=== PATIENT | male | born 1950 | race Caucasian/White ===

== ENCOUNTER 2016-11-19 02:47 | Inpatient (IN) | payer MEDICARE, OTHER ==
[~2016-11-19] VITALS: Ht 182.9 cm; Wt 84.8 kg
[2016-11-19] VITALS (12 sets, daily range): BP systolic 120–147; RESP 12–18; TEMP 97.3–98.4; Ht 182.9 cm; Wt 84.8 kg
[2016-11-19] MEDS ORDERED: OPTIRAY 350 100 ML VIAL HMH IV ONE (02:48)
[2016-11-19] MEDS ORDERED: ONDANSETRON 4 MG VIAL ONE ×3 (03:15→07:12)
[2016-11-19] MEDS ORDERED: SODIUM CHLORIDE 0.9% 1,000 ML ONE (03:20)
[2016-11-19] MEDS ORDERED: MORPHINE 4 MG/ML SYR ONE ×3 (03:20→07:12)
[2016-11-19] MEDS ORDERED: CEFAZOLIN 1,000 MG in DEXTROSE 5% 50 ML IV ONE (09:55)
[2016-11-19] MEDS ORDERED: LACT RINGERS 1,000 ML IV SCH (10:20)
[2016-11-19] MEDS ORDERED: MIDAZOLAM 2 MG/2 ML INJ IV ONE (10:20)
[2016-11-19] MEDS ORDERED: LIDOCAINE 1% BUFFERED 1 ML SYR INTRADERM PRN (10:20)
[2016-11-19] MEDS ORDERED: GLYCOPYRROLATE 0.2 MG/ML VIAL IV ONE (10:20)
[2016-11-19] MEDS ORDERED: MORPHINE 4 MG/ML SYR IV PRN (11:50)
[2016-11-19] MEDS ORDERED: MEPERIDINE 25 MG/ML IV PRN (11:50)
[2016-11-19] MEDS ORDERED: DILAUDID 1 MG/ML AMP IV PRN ×2 (11:50→12:20)
[2016-11-19] MEDS ORDERED: ONDANSETRON 4 MG VIAL IV PRN (11:50)
[2016-11-19] MEDS ORDERED: OXYCODONE 5 MG TAB PO PRN (11:50)
[2016-11-19] MEDS ORDERED: MORPHINE 2 MG/ML SYR IV PRN (11:50)
[2016-11-19] MEDS ORDERED: SODIUM CHLORIDE 0.9% 1,000 ML IV SCH (12:20)
[2016-11-19] MEDS ORDERED: FENTANYL 100 MCG/2 ML AMP IV ONE (13:30)
[2016-11-19] MEDS ORDERED: PROPOFOL 50ML PER ML IV ONE (13:30)
[2016-11-19] MEDS: TAMSULOSIN 0.4 MG CAP PO SCH (13:50)
[2016-11-19] MEDS: PANTOPRAZOLE 40 MG TAB PO SCH (13:50)
[2016-11-19] MEDS: Finasteride 5 MG TAB PO SCH (13:50)
[2016-11-20] VITALS (9 sets, daily range): BP systolic 145–153; RESP 16–18; TEMP 97.7–98.9
[2016-11-20] MEDS ORDERED: MISSING DOSE XX ONE (06:10)
[2016-11-20] MEDS: PANTOPRAZOLE 40 MG TAB PO SCH (06:37)
[2016-11-20] MEDS: Finasteride 5 MG TAB PO SCH (07:47)
[2016-11-20] MEDS: TAMSULOSIN 0.4 MG CAP PO SCH (07:47)
[2016-11-20] MEDS ORDERED: CEFTRIAXONE 1 GM in SODIUM CHLORIDE 0.9% 50 ML IV ONE (09:45)
[2016-11-20] MEDS ORDERED: FENTANYL 100 MCG/2 ML AMP IV ONE (12:45)
[2016-11-20] MEDS ORDERED: MIDAZOLAM 2 MG/2 ML INJ IV ONE (12:45)
[2016-11-20] MEDS ORDERED: MIDAZOLAM 2 MG/2 ML INJ ONE (13:20)
[2016-11-20] MEDS ORDERED: FENTANYL 100 MCG/2 ML AMP ONE (13:20)
[2016-11-20] MEDS ORDERED: SOD BICARB 8.4% VIAL 50 ML IV ONE (14:04)
[2016-11-20] MEDS ORDERED: LIDOCAINE 2% 20 ML INTRADERM ONE (14:04)
[2016-11-20] MEDS: APIXABAN 5 MG TAB PO SCH ×2 (15:45→20:25)
[2016-11-20] MEDS ORDERED: APIXABAN 5 MG TAB PO SCH (21:00)
[2016-11-21 03:27] VITALS: BP_SYST 163; RESP 18; TEMP 97.7
[2016-11-21] MEDS: PANTOPRAZOLE 40 MG TAB PO SCH (06:21)
[2016-11-21 07:08] VITALS: BP_SYST 147; RESP 16; TEMP 98
[2016-11-21] MEDS: Finasteride 5 MG TAB PO SCH (09:18)
[2016-11-21] MEDS: TAMSULOSIN 0.4 MG CAP PO SCH (09:18)
[2016-11-21] MEDS: APIXABAN 5 MG TAB PO SCH (09:26)
[2016-11-21 10:53] VITALS: BP_SYST 154; RESP 16; TEMP 97.9
[2016-11-21 13:56] VITALS: BP_SYST 154; RESP 16; TEMP 97.9
== END 2016-11-21 14:56 | disposition home or self-care (01) | DRG 694 ==
LOC: ENRESERVTM → ENRESERVDT → ER 02:47 → SURG 09:09 → SDS 12:16 → 5THE 13:00
PROVIDERS: ADMIT Urology; ATTEND Urology
PROC: 0TJB8ZZ Inspection of Bladder, Via Natural or Artificial Opening Endoscopic (ICD-10-PCS; principal; 2016-11-19 11:27)
PROC: 0T9030Z Drainage of Right Kidney with Drainage Device, Percutaneous Approach (ICD-10-PCS; 2016-11-20)
DX: N13.1 Hydronephrosis with ureteral stricture, not elsewhere classified (principal); I82.412 Acute embolism and thrombosis of left femoral vein; C61 Malignant neoplasm of prostate; C79.51 Secondary malignant neoplasm of bone; Z87.891 Personal history of nicotine dependence; Z79.01 Long term (current) use of anticoagulants
CPT/HCPCS: 36415; 50432; 74000; 74177; 76000; 80048; 80053; 81001; 83690; 85025; 85610; 85730; 87088; 93005; 96361; 96374; 96375; 96376; 99222; 99232